=== PATIENT | female | born 1940 | race Caucasian/White ===

== ENCOUNTER → 2019-01-19 14:42 | Outpatient (CLI) | payer MEDICARE, SELFPAY ==
--- NOTE | 2019-01-26 16:23 | PM.PFT.1 ---
Pulmonary Function Test Referral & Results Date Patient Seen: 01/19/19 Requesting provider: Remy Dee Results: The spirometry demonstrates an FVC of 3.01 L which is 102% of predicted. The FEV1 was measured at 2.21 L which is 101% of predicted. The FEV1/FVC ratio was 73 which is 99% of predicted. Following the administration of bronchodilator there was no appreciable change. Lung volumes show an SVC of 3.0 L which is 103% of predicted. The diffusing capacity was measured at 21.53 which is 79% of predicted. My no hematoma The maximum voluntary ventilation was reduced Interpretation: This study demonstrates normal spirometry but slightly reduced diffusing capacity, which suggest an element of disease at the capillary alveolar level
== END ==
PROVIDERS: Family Provider Family Medicine; PCP Family Medicine; Visit Provider Internal Medicine
DX: R91.1 Solitary pulmonary nodule (principal)
CPT/HCPCS: 94060; 94726; 94729

== ENCOUNTER → 2020-10-20 10:18 | Outpatient (CLI) | payer MEDICARE, SELFPAY ==
[2020-10-20 12:04] LABS: COVID19 -Nasal RAPID Negative (Negative)
== END ==
PROVIDERS: Family Provider Family Medicine; PCP Family Medicine; Visit Provider Student in an Organized Health Care Education/Training Program
DX: Z01.812 Encounter for preprocedural laboratory examination (principal); Z20.822 Contact with and (suspected) exposure to COVID-19
CPT/HCPCS: 87635

== ENCOUNTER → 2020-10-20 10:21 | Outpatient (CLI) | payer MEDICARE, OTHER, SELFPAY ==
--- NOTE | 2020-10-21 11:45 | PM.TREADMILL ---
Cardiac Stress Test Report Referral & Results Date Patient Seen: 10/21/20 Time Patient Seen: 11:46 Requesting provider: Johnna Blackburn Indication: palpitations Rest ECG: sinus rhythm Procedure Note: After Lexiscan injection had minimal dyspnea and 3/10 midsternal chest pain with radiation to the throat area without ST changes. Chest pain resolved 1:30 mins into recovery. No significant ST changes after Lexiscan injection. No ectopy Impression: Symptom positive Lexiscan stress test Nuclear images pending Please note: Actual ECG tracings can be found in the PACS system.
--- NOTE | 2020-10-21 14:41 | DI.NM.S_ITS ---
DATE OF SERVICE: PROCEDURE: Pharmacologic vasodilator stress and rest myocardial perfusion imaging with gating to assess ejection fraction and regional wall motion. DATE OF SERVICE: October 20, 2020 ORDERING PROVIDER: Johnna Blackburn DO INDICATIONS: The patient is an 80-year-old female with recent palpitations, exertional dyspnea, and chest discomfort. CARDIAC STRESS: Per protocol, 0.4 mg of regadenoson was infused, augmented with hand title one reading teacher exercise. With this, the patient had a normal hemodynamic response and developed some mild mid chest pressure radiating to the throat that resolved promptly in recovery. Her resting ECG shows sinus rhythm with normal ST segments and there are no significant ST-segment shifts or arrhythmias with stress. Per protocol, 25.1 millicuries of technetium-99m Myoview was injected and the patient was imaged 15 minutes later using a gated SPECT acquisition protocol. The day prior, she had been injected with 26.4 millicuries of technetium-99m Myoview at rest and imaged 30 minutes later, again using a gated SPECT acquisition protocol. FINDINGS: RAW DATA: There is fairly good myocardial tracer uptake. Lung/heart ratio was normal at 0.38 with a normal TID ratio of 0.93. QUANTITATED GATED SPECT: Post-stress ejection fraction is estimated at 96%, but is likely an overestimate because of relatively small left ventricular volumes. There are no focal wall motion abnormalities. The resting ejection fraction is estimated at 92%, again likely an overestimate, with a resting end-diastolic volume of 49 mL. MYOCARDIAL PERFUSION IMAGING: Post-stress supine images show a normal myocardial perfusion pattern without any perfusion defects. No prone imaging was available. The resting images show an identical perfusion pattern without any areas of improvement. IMPRESSION: 1. Normal myocardial perfusion study. 2. No evidence for myocardial ischemia or previous myocardial infarction. 3. High normal left ventricular systolic function with relatively small left ventricular volumes. 4. Nonspecific chest discomfort with regadenoson infusion but without any ECG abnormalities or arrhythmias. Deya Peralta - RS/fn/cs doc#: [id number]/job#: [id number] dd: 10/21/2020 13:42:00 dt: 10/21/2020 14:31:00 DICTATING MD/COPIES TO: Rajesh Cassidy MD COPIES MNE: TOBY;
== END ==
PROVIDERS: Family Provider Family Medicine; PCP Family Medicine; Referring Provider Family Medicine; Visit Provider Family Medicine
DX: Z01.812 Encounter for preprocedural laboratory examination (principal); Z20.822 Contact with and (suspected) exposure to COVID-19; R00.2 Palpitations; R07.89 Other chest pain; R06.09 Other forms of dyspnea
CPT/HCPCS: 78452; 87635; 93017; C9803; A9502; J2785